=== PATIENT | female | born 1935 | race Two or more races ===

== ENCOUNTER 2020-05-07 13:26 | Outpatient (CLI) | payer OTHER ==
[~2020-05-07 13:26] MED LIST: ACID1GRA3 PO; AMOX1TAB64 PO; ASPI81TA45 PO; ATOR20TA86 PO; CHOL10003 PO; CLOP75TA PO; GLIP5TAB10 PO; HYDR-1067 PO; INSU100I11 SQ-INSULIN; INSU100I13 SQ-INSULIN; METF500T PO; METF750T PO; NYST1000 PO; POLY17PO5 PO; SITA100T PO; TRAM50TA2 PO
== END 2020-05-07 23:59 | disposition home or self-care (01) ==
LOC: MERGE 13:26 → WOUND 13:26
PROVIDERS: ATTEND Internal Medicine
DX: E11.622 Type 2 diabetes mellitus with other skin ulcer (principal); I70.248 Atherosclerosis of native arteries of left leg with ulceration of other part of lower leg; L97.822 Non-pressure chronic ulcer of other part of left lower leg with fat layer exposed; I70.238 Atherosclerosis of native arteries of right leg with ulceration of other part of lower leg; L97.812 Non-pressure chronic ulcer of other part of right lower leg with fat layer exposed; I70.242 Atherosclerosis of native arteries of left leg with ulceration of calf; L97.222 Non-pressure chronic ulcer of left calf with fat layer exposed; I70.232 Atherosclerosis of native arteries of right leg with ulceration of calf; L97.212 Non-pressure chronic ulcer of right calf with fat layer exposed; E11.621 Type 2 diabetes mellitus with foot ulcer; I70.244 Atherosclerosis of native arteries of left leg with ulceration of heel and midfoot; L89.623 Pressure ulcer of left heel, stage 3; L97.421 Non-pressure chronic ulcer of left heel and midfoot limited to breakdown of skin; E11.51 Type 2 diabetes mellitus with diabetic peripheral angiopathy without gangrene; E11.65 Type 2 diabetes mellitus with hyperglycemia; L03.116 Cellulitis of left lower limb; L03.115 Cellulitis of right lower limb; E44.0 Moderate protein-calorie malnutrition; E78.5 Hyperlipidemia, unspecified; G89.29 Other chronic pain; Z68.30 Body mass index [BMI] 30.0-30.9, adult; Z87.891 Personal history of nicotine dependence; Z90.49 Acquired absence of other specified parts of digestive tract; Z95.820 Peripheral vascular angioplasty status with implants and grafts; Z79.4 Long term (current) use of insulin; Z79.82 Long term (current) use of aspirin; Z79.899 Other long term (current) drug therapy; Z96.641 Presence of right artificial hip joint
CPT/HCPCS: 97597; 97598

== ENCOUNTER 2020-05-12 10:26 | Inpatient (IN) | payer SELFPAY ==
[~2020-05-12] VITALS: Ht 152.4 cm; Wt 60.5 kg
[2020-05-12] MEDS ORDERED: SODIUM CHLORIDE 0.9% 1,000ML IVBOLUS ONE ×2 (10:30→12:00)
[2020-05-12] MEDS ORDERED: ACETAMINOPHEN 650 MG SUPP ONE (10:43)
[2020-05-12] MEDS ORDERED: CEFTRIAXONE PMX 1GM/50ML 50 ML ONE (10:43)
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
--- NOTE | 2020-05-12 10:48 | NUR ---
CXR VIEWED BY EDMD, INFILTRATE VS CHF, RN STILL TO INFUSE ORDERED BOLUS.
[2020-05-12] MEDS ORDERED: ACETAMINOPHEN 650 MG SUPP PR ONE (11:00)
[2020-05-12] MEDS ORDERED: PLEASE ENTER HEIGHT AND WEIGHT MC SCH (11:00)
--- NOTE | 2020-05-12 11:05 | NUR ---
2ND LITER NS ORDERED VERALLY, INFUSING RAPIDLY. REPEAT BP 50/30 MANUAL. MD AWARE. VERBAL ORDER GIVEN TO START LEVOPHED PERIPHERALLY FOR BP SUPPORT.
--- NOTE | 2020-05-12 11:06 | NUR ---
PHARMACY CALLED TO SEND LEVOPHED JESUS. BLOOD CX DRAWN X 2. INSTRUCTED RN TO START ROCEPHIN NOW.
--- NOTE | 2020-05-12 11:06 | NUR ---
AWAKE, MOANING, MAKING PURPOSEFUL MOVEMENTS. MD AT BEDSIDE, TO INSERT CENTRAL LINE SHORTLY.
[2020-05-12] MEDS ORDERED: KETAMINE 10 MG/ML, 20ML ONE (11:10)
[2020-05-12] MEDS ORDERED: PROPOFOL 10 MG/ML, 20ML ONE (11:10)
[2020-05-12] MEDS: NOREPINEPHRINE 8 MG in SODIUM CHLORIDE 0.9% 242 ML IV PRN ×2 (11:16→14:37)
[2020-05-12 11:24] LABS: MEAN CORPUSCULAR HEMOGLOBIN 29.1 pg (27.0-34.8); MEAN CORPUSCULAR HGB CONC 31.8 g/dL (32.4-35.8); MEAN PLATELET VOLUME 7.7 fL (7.4-10.4); PLATELET COUNT 240 x10^3/uL (130-400); RED BLOOD COUNT 3.38 x10^6/uL (3.82-5.3); RED CELL DISTRIBUTION WIDTH 15.6 % (9.6-15.2)
[2020-05-12 11:30] LABS: ALANINE AMINOTRANSFERASE 16 U/L (12-78); ALBUMIN 1.8 g/dL (3.4-5.0); ANION GAP 14 mmol/L (5-15); CALCIUM 7.5 mg/dL (8.5-10.1); CHLORIDE 108 mmol/L (98-107); CREATININE 1.31 mg/dL (0.55-1.02)
[2020-05-12] MEDS ORDERED: KETAMINE 100 MG/ML, 5ML IV ONE (11:30)
[2020-05-12] MEDS ORDERED: PROPOFOL 10 MG/ML, 20ML IVPush ONE (11:30)
[2020-05-12] MEDS ORDERED: CEFTRIAXONE PMX 1GM/50ML 50 ML IV ONE (11:30)
--- NOTE | 2020-05-12 11:31 | NUR ---
LEVO TITRATED TO 0.2 MCG/KG/HR, AUTO BP NOT ABLE TO OBTAIN MEASUREMENT, MD AWARE. CENTRAL LINE PLACEMENT IN PROG. PIV TOLERATING LEVO WITH NO S/SX INFILTRATION.
[2020-05-12 11:34] LABS: ALKALINE PHOSPHATASE 186 U/L (45-117); BILIRUBIN,TOTAL 1.2 mg/dL (0.2-1.0); TROPONIN I 0.066 ng/mL (0.000-0.045)
--- NOTE | 2020-05-12 11:36 | NUR ---
PT SEDATED PER EMAR FOR CENTRAL LINE, BP 47/24, MD AWARE. LEVO TITRATED U TO 0.3 MCG/KG/HR
[2020-05-12 11:44] LABS: MD YES
[2020-05-12 11:46] LABS: ACETONE, SERUM Negative (Negative); MONOS#(MANUAL) 0.52 x10^3/uL (0.3-2.7); MONOS% (MANUAL) 2 % (2-9)
[2020-05-12 11:47] LABS: LYMPH#(MANUAL) 2.84 x10^3/uL (1-3.4); LYMPHS% (MANUAL) 11 % (22-44); METAMYELOCYTES# (MANUAL) 1.03 x10^3/uL (0-0); METAMYELOCYTES% (MANUAL) 4 % (0-1); MYELOCYTES# (MANUAL) 0.26 x10^3/uL (0-0); MYELOCYTES% (MANUAL) 1 % (0-0)
[2020-05-12 11:48] LABS: BAND#(MANUAL) 7.74 x10^3/uL; BANDS%(MANUAL) 30 % (0-7); SEG#(MANUAL) 13.42 x10^3/uL (1.8-6.8); SEGS% (MANUAL) 52 % (42-75)
[2020-05-12 11:49] LABS: ANISOCYTOSIS 1+
[2020-05-12 11:50] LABS: POLYCHROMASIA 1+
[2020-05-12 11:51] LABS: ECHINOCYTES 1+
--- NOTE | 2020-05-12 11:51 | NUR ---
BP 88/40, MD AWARE, CENTRAL LINE PLACED. LEVO TITRATED UP TO 0.5 MCG/KG/HR. PT SLEEPING, RESPS EVEN AND UNLABORED. PT AWAKENS EASILY TO VOICE. AWAITING CXR FOR CENTRAL LINE USE.
[2020-05-12 11:52] LABS: <PLATELET ESTIMATE> ADEQUATE; <PLT MORPHOLOGY> NORMAL PLT MORPH; PMNS WITH VACUOLES 1+; TOXIC GRAN 1+
--- NOTE | 2020-05-12 11:58 | NUR ---
LEVO TITRATED UP TO 0.6 MCG/KG/MIN
[2020-05-12] MEDS ORDERED: VANCOMYCIN PER PHARMACY MC PRN ×2 (12:00→16:00)
[2020-05-12] MEDS ORDERED: SODIUM CHLORIDE FLUSH 10ML SYR IVF ONE (12:00)
[2020-05-12] MEDS ORDERED: VANCOMYCIN 1,200 MG in SODIUM CHLORIDE 0.9% 250 ML IV ONE (12:00)
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
--- NOTE | 2020-05-12 12:48 | NUR ---
DEFTU AT BEDSIDE, PT VERY RESTLESS. VERBAL ORDER GIVEN FOR MORPHINE 2MG
[2020-05-12] MEDS ORDERED: MAGNESIUM SULFATE PMX 2GM/50ML 50 ML IV ONE ×2 (13:00→17:00)
[2020-05-12] MEDS ORDERED: MORPHINE SULFATE 4 MG/ML, 1ML ONE (13:00)
[2020-05-12] MEDS ORDERED: KETOROLAC 30 MG/1 ML ONE (13:00)
[2020-05-12] MEDS ORDERED: KETOROLAC 30 MG/1 ML IVPush ONE (13:00)
--- NOTE | 2020-05-12 13:07 | NUR ---
PT HYPOTENSIVE, MD OLIVARES AT BEDSIDE AND AWARE. LEVO TITRATED BACK UP TO 0.6 MCG/KG/MIN
--- NOTE | 2020-05-12 13:14 | NUR ---
BP TRENDING DOWN, LEVO TITRATED TO 1 MCG/KG/MIN. PT DROWSY BUT OPENS EYES EASILY TO VOICE
[2020-05-12 13:24] LABS: MICROSCOPIC INDICATED
[2020-05-12 13:34] VITALS: BP 118/45
[2020-05-12] MEDS ORDERED: VASOPRESSIN 20 UNIT in SODIUM CHLORIDE 0.9% 99 ML IV PRN (14:00)
--- NOTE | 2020-05-12 14:00 | NUR ---
LATE ENTRY FOR 1350: REPORT GIVEN TO RECEIVING RN MARSHA. PT AWAKENS TO VOICE, SPEAKING IN FIJ[place], PURPOSEFUL MOVEMENTS.RESPS EVEN AND UNLABORED. SINUS TACH RATE 120-130 WITH NO ECTOPY. LEVO RUNNING AT 1MCG/KG/MIN, VANCO RUNNING PER EMAR, BOTH VIA IV PUMP AT TIME OF DISCHARGE. PT TRANSPORTED BY TASK RN AND EDT.
[2020-05-12] MEDS ORDERED: NOREPINEPHRINE 32 MG in SODIUM CHLORIDE 0.9% 218 ML IV PRN (15:00)
[2020-05-12] MEDS ORDERED: ONDANSETRON 2MG/ML, 2ML IVPush PRN (16:00)
[2020-05-12] MEDS ORDERED: DOCUSATE 100 MG CAPSULE PO PRN (16:00)
[2020-05-12] MEDS ORDERED: POLYETHYLENE GLYCOL 17 GM PACKET PO PRN (16:00)
[2020-05-12] MEDS ORDERED: ACETAMINOPHEN 325 MG TABLET PO PRN (16:00)
[2020-05-12] MEDS ORDERED: HYDROcodone/APAP 5/325 TABLET PO PRN (16:00)
[2020-05-12] MEDS ORDERED: PHARMACY MAY ADJ FOR RENAL FX MC PRN (16:00)
[2020-05-12] MEDS ORDERED: PHARMACOKINETIC CONSULTATION MC ONE (17:00)
[2020-05-12] MEDS ORDERED: SODIUM CHLORIDE 0.9% 1,000 ML IV SCH (17:00)
[2020-05-12] MEDS ORDERED: MAGNESIUM SULFATE PMX 4GM/100M 100 ML IVPB ONE (17:00)
[2020-05-12] MEDS ORDERED: ENOXAPARIN 40 MG/0.4 ML SQ SCH (17:00)
[2020-05-12] MEDS ORDERED: CEFTRIAXONE PMX 2GM/50ML 50 ML IVPB SCH (17:00)
[2020-05-12] MEDS ORDERED: PHARMACOKINETIC MONITORING MC PRN (17:00)
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
[2020-05-12] MEDS ORDERED: hydrALAzine 20 MG/ML, 1ML IV PRN (17:30)
[2020-05-12] MEDS ORDERED: MAGNESIUM SULFATE 1 GM/2 ML ONE (18:15)
[2020-05-12] MEDS ORDERED: CODE BLUE RESPONSE XX ONE (18:15)
[2020-05-12] MEDS ORDERED: EPINEPHRINE SYRINGE 0.1 MG/ML, 10ML ONE ×4 (18:15→20:35)
[2020-05-12] MEDS ORDERED: FENTANYL PF 100 MCG/2ML ONE (18:26)
[2020-05-12] MEDS ORDERED: LIDOCAINE-MPF 1%, 2ML ENDO PRN (18:30)
[2020-05-12] MEDS ORDERED: AMIODARONE 450 MG in DEXTROSE 5% 241 ML IV PRN (18:30)
[2020-05-12] MEDS ORDERED: PROPOFOL 100 ML IV PRN ×2 (18:30)
[2020-05-12] MEDS ORDERED: AMIODARONE 150 MG in DEXTROSE 5% 100 ML IV ONE (18:30)
[2020-05-12] MEDS ORDERED: DEXTROSE 4 GM TAB.CHEW PO PRN (18:30)
[2020-05-12] MEDS ORDERED: DEXTROSE 50%, 50ML SYRINGE IVPush PRN (18:30)
[2020-05-12] MEDS ORDERED: PHENYLEPHRINE 50 MG in SODIUM CHLORIDE 0.9% 245 ML IV PRN (18:30)
[2020-05-12] MEDS ORDERED: PHARMACY MAY ADJ FOR RENAL FX MC SCH (18:30)
[2020-05-12] MEDS ORDERED: FENTANYL PF 100 MCG/2ML IV ONE (18:30)
[2020-05-12] MEDS ORDERED: ONDANSETRON 2MG/ML, 2ML IV PRN (18:30)
[2020-05-12] MEDS ORDERED: GLUCAGON 1 MG IM PRN (18:30)
[2020-05-12] MEDS ORDERED: SENNA/DOCUSATE TABLET NG PRN (18:30)
[2020-05-12] MEDS ORDERED: FENTANYL PF 100 MCG/2ML IVPush PRN (18:30)
[2020-05-12] MEDS ORDERED: FILTER 0.22 MICRON IV PRN (19:00)
[2020-05-12] MEDS ORDERED: ATROPINE 1 MG/ML, 1ML ONE (20:35)
[2020-05-12] MEDS ORDERED: SODIUM BICARB 7.5%, 50ML SYRINGE ONE (20:35)
[2020-05-12] MEDS ORDERED: SODIUM CHLORIDE FLUSH 10ML SYR IVF SCH (21:00)
[2020-05-13] MEDS ORDERED: ASPIRIN 81 MG TABLET EC PO SCH (06:00)
[2020-05-13] MEDS ORDERED: VANCOMYCIN 1,200 MG in SODIUM CHLORIDE 0.9% 250 ML IV ONE (06:30)
[2020-05-13] MEDS ORDERED: CHOLECALCIFEROL 1,000 UNIT TABLET PO SCH (09:00)
[2020-05-13] MEDS ORDERED: INSULIN GLARGINE 100 UNITS/ML, PEN SQ-INSULIN SCH (09:00)
[2020-05-13] MEDS ORDERED: ATORVASTATIN 40 MG TABLET PO SCH (09:00)
[2020-05-13] MEDS ORDERED: CLOPIDOGREL 75 MG TABLET PO SCH (09:00)
== END 2020-05-12 19:36 | disposition expired | DRG 871 ==
LOC: ED 11:24 → EDIP 12:23 → SUATTDRO 12:40 → CCU 13:58
PROVIDERS: ADMIT Internal Medicine; ATTEND Internal Medicine
PROC: 02HV33Z Insertion of Infusion Device into Superior Vena Cava, Percutaneous Approach (ICD-10-PCS; principal; 2020-05-12)
PROC: 0BH17EZ Insertion of Endotracheal Airway into Trachea, Via Natural or Artificial Opening (ICD-10-PCS; 2020-05-12)
PROC: 5A12012 Performance of Cardiac Output, Single, Manual (ICD-10-PCS; 2020-05-12)
PROC: 3E033XZ Introduction of Vasopressor into Peripheral Vein, Percutaneous Approach (ICD-10-PCS; 2020-05-12)
PROC: 5A1935Z Respiratory Ventilation, Less than 24 Consecutive Hours (ICD-10-PCS; 2020-05-12)
PROC: 0T9B30Z Drainage of Bladder with Drainage Device, Percutaneous Approach (ICD-10-PCS; 2020-05-12)
DX: A41.9 Sepsis, unspecified organism (principal); G93.41 Metabolic encephalopathy; J18.0 Bronchopneumonia, unspecified organism; J81.0 Acute pulmonary edema; J96.00 Acute respiratory failure, unspecified whether with hypoxia or hypercapnia; R65.21 Severe sepsis with septic shock; N17.9 Acute kidney failure, unspecified; I47.2 Ventricular tachycardia; D64.9 Anemia, unspecified; E11.51 Type 2 diabetes mellitus with diabetic peripheral angiopathy without gangrene; E78.5 Hyperlipidemia, unspecified; E83.42 Hypomagnesemia; E86.0 Dehydration; I10 Essential (primary) hypertension; M54.9 Dorsalgia, unspecified; I46.9 Cardiac arrest, cause unspecified; Z96.641 Presence of right artificial hip joint; G89.29 Other chronic pain; Z20.822 Contact with and (suspected) exposure to COVID-19; Z90.49 Acquired absence of other specified parts of digestive tract; Z91.14 Patient's other noncompliance with medication regimen; Z79.899 Other long term (current) drug therapy; Z79.891 Long term (current) use of opiate analgesic; Z79.01 Long term (current) use of anticoagulants; Z79.4 Long term (current) use of insulin; Z88.1 Allergy status to other antibiotic agents; Z79.82 Long term (current) use of aspirin
CPT/HCPCS: 31500; 36415; 36556; 36600; 71045; 80053; 81001; 82010; 82140; 82803; 83605; 83735; 83880; 84145; 84478; 84484; 85025; 87040; 87070; 87077; 87081; 87086; 87205; 92950; 93005; 94002; 96365; 96375; G0378; J0461; J0696; J1650; J1885; J2704; J3010; J3370; J3475; J7060; J0282; J7030; J7050; U0003